=== PATIENT | female | born 1985 | race Two or more races ===

== ENCOUNTER 2022-06-30 12:49 | Emergency (ER) | payer OTHER ==
[~2022-06-30] VITALS: Ht 160 cm; Wt 60.8 kg
[2022-06-30] MEDS ORDERED: BISOPROLOL FUMAR5 MG PO (13:14)
== END 2022-06-30 18:26 | disposition home or self-care (01) ==
LOC: ER 12:49
DX: G43.919 Migraine, unspecified, intractable, without status migrainosus (principal); Q04.8 Other specified congenital malformations of brain; Z88.8 Allergy status to other drugs, medicaments and biological substances
CPT/HCPCS: 70552

== ENCOUNTER 2022-10-21 15:43 | Emergency (ER) | payer OTHER ==
[~2022-10-21] VITALS: Ht 162.6 cm; Wt 60.8 kg
[~2022-10-21 15:43] MED LIST: BISOPROLOL FUMAR5 MG PO
[2022-10-21] MEDS ORDERED: OSEL75CA PO (20:05)
== END 2022-10-21 20:22 | disposition home or self-care (01) ==
LOC: ER 15:43
DX: J10.1 Influenza due to other identified influenza virus with other respiratory manifestations (principal); R06.02 Shortness of breath; Z20.822 Contact with and (suspected) exposure to COVID-19; Z88.8 Allergy status to other drugs, medicaments and biological substances

== ENCOUNTER 2022-12-26 15:01 | Outpatient (CLI) | payer OTHER ==
[~2022-12-26 15:01] MED LIST changes: +OSEL75CA PO
== END 2022-12-26 15:02 | disposition home or self-care (01) ==
LOC: LAB 15:01
PROVIDERS: ATTEND Radiology Diagnostic Radiology
DX: Q28.3 Other malformations of cerebral vessels (principal)

== ENCOUNTER 2022-12-30 09:26 | Outpatient (CLI) | payer OTHER | END 2022-12-30 09:49 | disposition home or self-care (01) | LOC: MRI 09:26 | DX: Q28.3 Other malformations of cerebral vessels (principal) | CPT/HCPCS: 70553 ==